=== PATIENT | male | born 1960 | race Caucasian/White ===

== ENCOUNTER 2018-05-14 11:55 | Emergency (ER) | payer OTHER ==
[~2018-05-14] VITALS: Ht 167.6 cm; Wt 72.6 kg
[~2018-05-14 11:55] MED LIST: [UNRECOGNIZED DRUG - OTHER] PO
== END 2018-05-14 20:51 | disposition home or self-care (01) ==
LOC: ER 11:55
DX: M94.0 Chondrocostal junction syndrome [Tietze] (principal); K29.70 Gastritis, unspecified, without bleeding

== ENCOUNTER 2019-04-24 09:58 | Outpatient (CLI) | payer OTHER | END 2019-04-24 10:04 | disposition home or self-care (01) | LOC: LAB 09:58 | DX: J11.1 Influenza due to unidentified influenza virus with other respiratory manifestations (principal); R05 Cough ==

== ENCOUNTER 2020-08-30 05:40 | Day surgery (SDC) | payer OTHER ==
[~2020-08-30 05:40] MED LIST changes: +TOPROL XL25 M1 PO
== END 2020-08-30 11:15 | disposition home or self-care (01) ==
LOC: CIR.AMB 05:40
PROVIDERS: ATTEND Orthopaedic Surgery Hand Surgery
DX: M65.322 Trigger finger, left index finger (principal); Z20.822 Contact with and (suspected) exposure to COVID-19

== ENCOUNTER 2021-01-28 14:23 | Emergency (ER) | payer OTHER ==
[~2021-01-28] VITALS: Ht 167.6 cm; Wt 77.1 kg
== END 2021-01-28 19:10 | disposition home or self-care (01) ==
LOC: ER 14:23
DX: N39.0 Urinary tract infection, site not specified (principal)

== ENCOUNTER 2022-04-01 20:33 | Emergency (ER) | payer OTHER ==
[~2022-04-01] VITALS: Ht 167.6 cm; Wt 68.0 kg
== END 2022-04-02 00:12 | disposition home or self-care (01) ==
LOC: ER 20:33
DX: R10.9 Unspecified abdominal pain (principal)

== ENCOUNTER 2022-08-04 11:49 | Emergency (ER) | payer OTHER ==
[~2022-08-04] VITALS: Ht 167.6 cm; Wt 72.6 kg
== END 2022-08-04 14:43 ==
LOC: ER 11:49
DX: M79.671 Pain in right foot (principal)

== ENCOUNTER 2022-08-04 17:02 | Emergency (ER) | payer OTHER ==
[~2022-08-04] VITALS: Ht 170.2 cm; Wt 74.8 kg
== END 2022-08-04 21:25 | disposition home or self-care (01) ==
LOC: ER 17:02
DX: S76.011A Strain of muscle, fascia and tendon of right hip, initial encounter (principal); X58.XXXA Exposure to other specified factors, initial encounter; Y93.9 Activity, unspecified; Y92.9 Unspecified place or not applicable; Y99.9 Unspecified external cause status; M62.838 Other muscle spasm; K57.30 Diverticulosis of large intestine without perforation or abscess without bleeding; N20.0 Calculus of kidney; I10 Essential (primary) hypertension

== ENCOUNTER 2022-10-10 06:28 | Day surgery (SDC) | payer OTHER ==
[~2022-10-10 06:28] MED LIST changes: +TOPROL XL50 M1 PO
[2022-10-10] MEDS ORDERED: PERCOCET 5-3251 EACH PO (09:03)
[2022-10-10] MEDS ORDERED: NEURONTIN300 MG PO (09:03)
[2022-10-10] MEDS ORDERED: POLY119PG PO (09:03)
== END 2022-10-10 14:30 | disposition home or self-care (01) ==
LOC: CIR.AMB 06:28
PROVIDERS: ATTEND Surgery
DX: K40.21 Bilateral inguinal hernia, without obstruction or gangrene, recurrent (principal); Z20.822 Contact with and (suspected) exposure to COVID-19
CPT/HCPCS: 49651; C1781

== ENCOUNTER 2024-01-09 04:31 | Emergency (ER) | payer OTHER ==
[~2024-01-09] VITALS: Ht 167.6 cm; Wt 69.4 kg
[~2024-01-09 04:31] MED LIST changes: +NEURONTIN300 MG PO; +PERCOCET 5-3251 EACH PO; +POLY119PG PO
[2024-01-09] MEDS ORDERED: ASPIRIN 325 MG TABLET.EC PO STA (06:10)
[2024-01-09] MEDS ORDERED: FUROsemide 20 MG TABLET PO STA (06:10)
[2024-01-09 07:11] LABS: INR 0.98; PARTIAL THROMBOPLASTIN TIME 28.2 SECONDS (22.0-34.0); PROTHROMBIN TIME 10.7 SECONDS (9.0-11.5)
[2024-01-09 07:17] LABS: ALBUMIN 4.5 gm/dL (3.4-5.0); BILIRUBIN TOTAL 0.75 mg/dL (0.3-1.2); CALCIUM 9.6 mg/dL (8.5-10.1); CREATININE SERUM 0.94 mg/dL (0.70-1.30); GFR 81.05; HEMATOCRIT 45.2 % (39.0-48.0); HEMOGLOBIN 15.5 g/dL (13-16.00); MEAN CELL VOLUME 96.2 fL (80.0-100.00); MEAN CORPUSCULAR HGB CONC 34.3 g/dl (32.0-36.0); PLATELET COUNT 220 K/uL (150-450); POTASSIUM 4.09 mEq/L (3.5-5.1); RED BLOOD COUNT 4.69 M/uL (4.00-6.00); RED CELL DISTRIBUTION WIDTH 13.5 % (11.5-14.5); TOTAL PROTEIN 7.5 gm/dL (6.4-8.2)
[2024-01-09 09:13] LABS: URINE APPEARANCE Clear; URINE BILIRRUBIN Negative (NEGATIVE); URINE BLOOD Negative; URINE COLOR Yellow; URINE GLUCOSE Negative (NEGATIVE); URINE KETONE Negative (NEGATIVE); URINE LEUKOCYTE Negative; URINE NITRATE Negative; URINE PROTEIN Negative (NEGATIVE); URINE UROBILINOGEN 0.2 E.U./dl
[2024-01-09 09:17] LABS: URINE BACTERIA 3.7 uL (0.0-1933); URINE EPITHELIAL CELLS 0.1 uL (0.0-38.8); URINE RBC 0.4 uL (0.0-20.8)
[2024-01-09 11:52] VITALS: BP 150/73; O2SAT 99
== END 2024-01-09 11:55 | disposition home or self-care (01) ==
LOC: ER 04:33
PROVIDERS: General Practice
DX: R07.9 Chest pain, unspecified (principal); I10 Essential (primary) hypertension